=== PATIENT | male | born 1970 | race Caucasian/White ===

== ENCOUNTER 2024-06-01 23:39 | Observation (INO) | payer OTHER ==
[2024-06-02 00:48] LABS: Basophils % (A) 0 %; Eosinophils # (A) 0.1 k/uL (0-0.7); Eosinophils % (A) 1 %; HCT 45.5 % (39.0-53.0); HGB 14.4 gm/dL (13.0-17.5); Lymphocytes % (A) 19 %; MCH 30.4 pg (25.0-35.0); MCHC 31.7 g/dL (31.0-37.0); MCV 95.9 fL (80.0-100.0); Mean Platelet Volume 7.1; Monocytes # (A) 0.3 k/uL (0-1.0); Monocytes % (A) 5 %; Neutrophils # (A) 3.8 k/uL (1.3-7.7); Neutrophils % (A) 73 %; Platelet Count 184 k/uL (150-450); RBC 4.74 m/uL (4.30-5.90); RDW 13.6 % (11.5-15.5); WBC 5.2 k/uL (3.8-10.6)
[2024-06-02 00:52] LABS: ALT 23 U/L (4-49); African American GFR (CKD) >90 (>60 ml/min/1.73 sqM); Albumin 4.3 g/dL (3.5-5.0); Anion Gap 13 mmol/L; Blood Urea Nitrogen 11 mg/dL (9-20); Calcium 9.3 mg/dL (8.4-10.2); Carbon Dioxide 20 mmol/L (22-30); Chloride 104 mmol/L (98-107); Glucose 107 mg/dL (74-99); Non-African American GFR(CKD) >90 (>60 ml/min/1.73 sqM); Sodium 137 mmol/L (137-145); Total Bilirubin 0.7 mg/dL (0.2-1.3)
--- NOTE | 2024-06-02 00:53 | ED ---
General Adult HPI - General Chief complaint: Alcohol Stated complaint: ETOH, Altered Mental Time Seen by Provider: 06/01/24 23:46 Source: EMS Mode of arrival: EMS Limitations: altered mental status - History of Present Illness Initial comments: This patient is a 53-year-old man brought by ambulance to have evaluation for altered mental status. The patient reportedly was found sleeping in his [id number] vehicle roadside. The police had responded and they called ambulance brought the patient to have evaluation. It is reported that patient's sister was contacted by phone and states he hit does have diabetes and hypertension. The patient not able to provide any history -: unknown Consistency: constant Improves with: none Worsens with: none - Related Data Home Medications Medication Instructions Recorded Confirmed Amitriptyline HCl [Elavil] 50 mg PO HS 06/02/24 06/02/24 Ammonium Lactate Lotion 1 applic TOPICAL HS 06/02/24 06/02/24 [Lac-Hydrin 12% Lotion] Atorvastatin [Lipitor] 20 mg PO DAILY 06/02/24 06/02/24 Cholecalciferol [Vitamin D3 (125 125 mcg PO DAILY 06/02/24 06/02/24 Mcg = 5000 Iu)] Dapagliflozin Propanediol [Farxiga] 10 mg PO DAILY 06/02/24 06/02/24 Dulaglutide [Trulicity] 1.5 mg SQ Q7D 06/02/24 06/02/24 Fexofenadine HCl [Jacqui Allergy] 180 mg PO DAILY 06/02/24 06/02/24 Ibuprofen [Motrin] 800 mg PO BID-W/MEALS PRN 06/02/24 06/02/24 Latanoprost [Latanoprost 0.005%] 1 drop LEFT EYE HS 06/02/24 06/02/24 Pioglitazone [Actos] 15 mg PO DAILY 06/02/24 06/02/24 Allergies Allergy/AdvReac Type Severity Reaction Status Date / Time No Known Allergies Allergy Verified 06/02/24 00:26 Review of Systems ROS Statement: Those systems with pertinent positive or pertinent negative responses have been documented in the HPI. ROS Other: All systems not noted in ROS Statement are negative. Limitations: ROS unobtainable due to patients medical condition Past Medical History Past Medical History: Diabetes Mellitus, Hypertension History of Any Multi-Drug Resistant Organisms: Unobtainable Past Surgical History: Unable to Obtain Past Psychological History: Unable to Obtain Smoking Status: Unknown if ever smoked Past Alcohol Use History: Unable to Obtain Past Drug Use History: Unable to Obtain General Exam Limitations: altered mental status General appearance: appears intoxicated, obtunded Head exam: Present: atraumatic, normocephalic Eye exam: Present: normal appearance, PERRL. Absent: scleral icterus, conjunctival injection Neck exam: Present: normal inspection. Absent: tenderness, meningismus Respiratory exam: Present: normal lung sounds bilaterally. Absent: respiratory distress, wheezes, rales, rhonchi, stridor, chest wall tenderness, accessory muscle use Cardiovascular Exam: Present: regular rate, normal rhythm, normal heart sounds. Absent: systolic murmur, diastolic murmur, rubs, gallop GI/Abdominal exam: Present: soft. Absent: distended, tenderness, guarding, rebound, rigid, mass, pulsatile mass Extremities exam: Present: normal inspection, normal capillary refill. Absent: pedal edema, calf tenderness Back exam: Present: normal inspection. Absent: CVA tenderness (R), CVA tenderness (L), vertebral tenderness Neurological exam: Present: altered, reflexes normal Skin exam: Present: warm, dry, intact, normal color. Absent: rash Course Vital Signs 06/01/24 06/02/24 06/02/24 23:43 00:43 01:05 Temperature 97.3 F L Pulse Rate 62 80 88 Respiratory 18 19 18 Rate Blood Pressure 133/83 113/96 135/66 O2 Sat by Pulse 98 96 97 Oximetry 06/02/24 06/02/24 06/02/24 02:34 04:08 05:01 Temperature Pulse Rate 95 67 63 Respiratory 18 16 18 Rate Blood Pressure 131/68 127/71 141/84 O2 Sat by Pulse 97 95 98 Oximetry 06/02/24 06/02/24 06/02/24 07:00 08:00 10:00 Temperature Pulse Rate 66 79 88 Respiratory 16 18 18 Rate Blood Pressure 143/82 151/84 155/82 O2 Sat by Pulse 97 97 97 Oximetry 06/02/24 06/02/24 06/02/24 13:27 14:00 16:13 Temperature Pulse Rate 99 99 87 Respiratory 18 16 18 Rate Blood Pressure 148/78 142/73 144/81 O2 Sat by Pulse 96 96 Oximetry 09/06/02/24 06/02/24 18:13 19:38 21:10 Temperature Pulse Rate 89 84 76 Respiratory 20 16 18 Rate Blood Pressure 127/73 164/94 125/75 O2 Sat by Pulse 94 L 94 L 94 L Oximetry 06/03/24 06/03/24 06/03/24 00:00 05:00 07:53 Temperature Pulse Rate 66 75 78 Respiratory 18 18 18 Rate Blood Pressure 125/57 139/95 154/79 O2 Sat by Pulse 97 96 98 Oximetry Medical Decision Making - Medical Decision Making The patient had CT scan of the brain that I interpreted as negative for acute bony injury. The scan is negative for acute intracranial hemorrhage or mass effect. Was pt. sent in by a medical professional or institution (, PA, NET WEB APPLICATION DEVELOPER, urgent care, hospital, or half-way...) When possible be specific @ -[No] Did you speak to anyone other than the patient for history (EMS, parent, family, police, friend...)? What history was obtained from this source @ -EMS provided history Did you review nursing and triage notes (agree or disagree)? Why? @ -[I reviewed and agree with nursing and triage notes] Were old charts reviewed (outside hosp., previous admission, EMS record, old EKG, old radiological studies, urgent care reports/EKG's, half-way records)? Report findings @ -[No old charts were reviewed] Differential Diagnosis (chest pain, altered mental status, abdominal pain women, abdominal pain men, vaginal bleeding, weakness, fever, dyspnea, syncope, headac he, dizziness, GI bleed, back pain, seizure, CVA, palpatations, mental health, musculoskeletal)? @ -[Differential Altered Mental Status: Hypoglycemia, DKA, hypercapnia, ETOH, overdose, CO poisoning, trauma, myxedema coma, HTN encephalopathy, infection, encephalitis, psychosis, intercranial hemorrhage, hepatic encephalopathy, meningitis, CVA, this is not meant to be an all-inclusive list EKG interpreted by me (3pts min.). @ -[As above] X-rays interpreted by me (1pt min.). @ -[None done] CT interpreted by me (1pt min.). @ -[I interpreted as above U/S interpreted by me (1pt. min.). @ -[None done] What testing was considered but not performed or refused? (CT, X-rays, U/S, labs)? Why? @ -[None] What meds were considered but not given or refused? Why? @ -[None] Did you discuss the management of the patient with other professionals (professionals i.e. , PA, NET WEB APPLICATION DEVELOPER, lab, RT, psych nurse, social work coordinator, under water assistant, teacher, hazard mitigation officer, case consultant)? Give summary @ -[Case discussed with admitting physician and treatment recommendations incorporated Was smoking cessation discussed for >3mins.? @ -[No] Was critical care preformed (if so, how long)? @ -[No] Were there social determinants of health that impacted care today? How? (Homelessness, low income, unemployed, alcoholism, drug addiction, transportation, low edu. Level, literacy, decrease access to med. care, alf, rehab)? @ -[No] Was there de-escalation of care discussed even if they declined (Discuss DNR or withdrawal of care, Hospice)? DNR status @ -[No] What co-morbidities impacted this encounter? (DM, HTN, Smoking, COPD, CAD, Cancer, CVA, ARF, Chemo, Hep., AIDS, mental health diagnosis, sleep apnea, morbid obesity)? @ -[None] Was patient admitted / discharged? Hospital course, mention meds given and route, prescriptions, significant lab abnormalities, going to OR and other pertinent info. @ -[Patient is a 53-year-old man who was brought by EMS to have evaluation after he was found unresponsive in a vehicle on the roadside. The patient had workup here that revealed some alcohol present. After the patient was finished with the initial workup was reevaluated and the patient is arousable but not able to give appropriate history. In light of this will be admitted to have further evaluation by neurology and/or psychology. There are no focal deficits on reevaluation Undiagnosed new problem with uncertain prognosis? @ -[No] Drug Therapy requiring intensive monitoring for toxicity (Heparin, Nitro, Insulin, Cardizem)? @ -[No] Were any procedures done? @ -[No] Diagnosis/symptom? @ -Altered mental status Alcohol intoxication Acute, or Chronic, or Acute on Chronic? @ -Acute Uncomplicated (without systemic symptoms) or Complicated (systemic symptoms)? @ -[Uncomplicated Side effects of treatment? @ -[No] Exacerbation, Progression, or Severe Exacerbation? @ -[No] Poses a threat to life or bodily function? How? (Chest pain, [place], [place], pneumonia, PE, COPD, DKA, ARF, appy, cholecystitis, CVA, Diverticulitis, Homicidal, Suicidal, threat to staff... and all critical care pts) @ -[Requires further evaluation - Lab Data Result diagrams: 06/04/24 03:00 06/04/24 03:00 Lab Results 06/01/24 06/01/24 06/02/24 Range/Units 23:58 23:58 01:50 WBC 5.2 (3.8-10.6) k/uL RBC 4.74 (4.30-5.90) m/uL Hgb 14.4 (13.0-17.5) gm/dL Hct 45.5 (39.0-53.0) % MCV 95.9 (80.0-100.0) fL MCH 30.4 (25.0-35.0) pg MCHC 31.7 (31.0-37.0) g/dL RDW 13.6 (11.5-15.5) % Plt Count 184 (150-450) k/uL MPV 7.1 Neutrophils % 73 % Lymphocytes % 19 % Monocytes % 5 % Eosinophils % 1 % Basophils % 0 % Neutrophils # 3.8 (1.3-7.7) k/uL Lymphocytes # 1.0 (1.0-4.8) k/uL Monocytes # 0.3 (0-1.0) k/uL Eosinophils # 0.1 (0-0.7) k/uL Basophils # 0.0 (0-0.2) k/uL Sodium 137 (137-145) mmol/L Potassium 4.0 (3.5-5.1) mmol/L Chloride 104 (98-107) mmol/L Carbon Dioxide 20 L (22-30) mmol/L Anion Gap 13 mmol/L BUN 11 (9-20) mg/dL Creatinine 0.85 (0.66-1.25) mg/dL Est GFR (CKD-EPI)AfAm >90 (>60 ml/min/1.73 sqM) Est GFR (CKD-EPI)NonAf >90 (>60 ml/min/1.73 sqM) Glucose 107 H (74-99) mg/dL Calcium 9.3 (8.4-10.2) mg/dL Total Bilirubin 0.7 (0.2-1.3) mg/dL AST 31 (17-59) U/L ALT 23 (4-49) U/L Alkaline Phosphatase 82 (38-126) U/L Total Protein 7.0 (6.3-8.2) g/dL Albumin 4.3 (3.5-5.0) g/dL Urine Color Colorless Urine Appearance Clear (Clear) Urine pH 5.5 (5.0-8.0) Ur Specific [place] 1.008 (1.001-1.035) Urine Protein Negative (Negative) Urine Glucose (UA) 4+ H (Negative) Urine Ketones Negative (Negative) Urine Nitrite Negative (Negative) Urine Bilirubin Negative (Negative) Urine Urobilinogen 0.2 (<2.0) mg/dL Ur Leukocyte Esterase Negative (Negative) Urine RBC 2 (0-5) /hpf Urine WBC 1 (0-5) /hpf Ur Squamous Epith Cells 2 (0-4) /hpf Urine Mucus Rare H (None) /hpf Urine Opiates Screen Not Detected (NotDetected) Ur Oxycodone Screen Not Detected (NotDetected) Urine Methadone Screen Not Detected (NotDetected) Ur Barbiturates Screen Not Detected (NotDetected) U Tricyclic Antidepress Detected H (NotDetected) Ur Phencyclidine Scrn Not Detected (NotDetected) Ur Amphetamines Screen Not Detected (NotDetected) U Methamphetamines Scrn Not Detected (NotDetected) U Benzodiazepines Scrn Not Detected (NotDetected) Urine Cocaine Screen Not Detected (NotDetected) U Marijuana (THC) Screen Not Detected (NotDetected) Serum Alcohol 93 mg/dL Disposition Clinical Impression: Altered mental status, Alcoholic intoxication Disposition: ADMITTED IP TO THIS HOSP Condition: Stable Is patient prescribed a controlled substance at d/c from ED?: No
[2024-06-02 01:26] LABS: AST 31 U/L (17-59); Alkaline Phosphatase 82 U/L (38-126)
[2024-06-02 01:28] LABS: Alcohol 93 mg/dL
[2024-06-02] MEDS: ZIPRASIDONE 20 MG VIAL IM STA (01:39)
[2024-06-02 02:17] LABS: Mucus,Urine Rare /hpf; RBC,Urine 2 /hpf (0-5); Squamous Epithelial Cell,Urine 2 /hpf (0-4); WBC,Urine 1 /hpf (0-5)
[2024-06-02 02:33] LABS: Amphetamine Screen,Urine Not Detected (NotDetected); Barbiturate Screen,Urine Not Detected (NotDetected); Benzodiazepines Screen,Urine Not Detected (NotDetected); Cocaine Screen,Urine Not Detected (NotDetected); Methadone Screen, Urine Not Detected (NotDetected); Opiate Screen,Urine Not Detected (NotDetected); Oxycodone Screen, Urine Not Detected (NotDetected); Phencyclidine Screen,Urine Not Detected (NotDetected); Tricyclic Antidepressant,Urine Detected (NotDetected)
[2024-06-02 02:34] LABS: Urn Cannabinoid Scrn Not Detected (NotDetected)
[2024-06-02 02:35] LABS: Appearance,Urine Clear (Clear); Bilirubin,Urine Negative (Negative); Color,Urine Colorless; Glucose,Urine (UA) 4+ (Negative); Ketones,Urine Negative (Negative); Leukocyte Esterase,Urine Negative (Negative); Nitrite,Urine Negative (Negative); PH, Urine 5.5 (5.0-8.0); Protein,Urine Negative (Negative); Specific Gravity,Urine 1.008 (1.001-1.035); Urobilinogen,Urine 0.2 mg/dL (<2.0)
--- NOTE | 2024-06-02 02:53 | CT ---
EXAM: CT Head Without Intravenous Contrast CLINICAL HISTORY: ITS.REASON CT Reason: altered mental status TECHNIQUE: Axial computed tomography images of the head/brain without intravenous contrast. CTDI is 49.2 mGy and DLP is 1243.4 mGy-cm. This CT exam was performed using one or more of the following dose reduction techniques: automated exposure control, adjustment of the mA and/or kV according to patient size, and/or use of iterative reconstruction technique. COMPARISON: No relevant prior studies available. FINDINGS: Brain: No hemorrhage or mass effect. Ventricles: No hydrocephalus. Bones/joints: Unremarkable. Soft tissues: Unremarkable. Sinuses: No air fluid level. Mastoid air cells: Clear. IMPRESSION: No acute hemorrhage, hydrocephalus, or mass effect.
[2024-06-02] MEDS ORDERED: NALOXONE 0.4 MG/ML 1 ML VIAL IV PRN (07:28)
[2024-06-02] MEDS ORDERED: LORazepam 2 MG/ML INJ IV PRN ×2 (07:31)
[2024-06-02] MEDS: SODIUM CHLORIDE 0.9% 1,000 ML IV SCH (08:06)
[2024-06-02 08:09] LABS: Glucose,Whole Blood 97 mg/dL (70-110)
[2024-06-02] MEDS ORDERED: DEXTROSE 50% SYRINGE 50 ML IVP PRN ×2 (09:50)
--- NOTE | 2024-06-02 09:58 | P.HPIM ---
History of Present Illness H&P Date: 06/02/24 Saman Uriostegui is a 53-year-old male patient who was brought to the ER by ambulance for altered mental status. According to records patient was found sleeping in his vehicle roadside the police had responded and called an ambulance to have him evaluated at this time patient is sleeping in bed unable to answer questions. According to nursing staff patient remained altered and confused last night requiring Geodon. Per nursing staff sister was contacted by phone reports only history of diabetes and hypertension. Head CT was completed showing no acute hemorrhage hydrocephalus or mass effect. Patient serum alcohol level of 93. Drug screen positive for tricyclic antidepressant. Other lab work unremarkable. Vital signs temp 97.3, heart rate 62, respiratory rate 18, blood pressure 133/83 with a pulse ox of 98% on 2 L at this time patient will be admitted patient started on alcohol withdrawal protocol per ER. Neurology and psychiatry services have been consulted. Review of Systems Please refer to HPI otherwise unremarkable Past Medical History Past Medical History: Diabetes Mellitus, Hypertension History of Any Multi-Drug Resistant Organisms: Unobtainable Past Surgical History: Unable to Obtain Past Psychological History: Unable to Obtain Smoking Status: Unknown if ever smoked Past Alcohol Use History: Unable to Obtain Past Drug Use History: Unable to Obtain Medications and Allergies Home Medications Medication Instructions Recorded Confirmed Type Amitriptyline HCl [Elavil] 50 mg PO HS 06/02/24 06/02/24 History Ammonium Lactate Lotion 1 applic TOPICAL HS 06/02/24 06/02/24 History [Lac-Hydrin 12% Lotion] Atorvastatin [Lipitor] 20 mg PO DAILY 06/02/24 06/02/24 History Cholecalciferol [Vitamin D3 (125 125 mcg PO DAILY 06/02/24 06/02/24 History Mcg = 5000 Iu)] Dapagliflozin Propanediol [Farxiga] 10 mg PO DAILY 06/02/24 06/02/24 History Dulaglutide [Trulicity] 1.5 mg SQ Q7D 06/02/24 06/02/24 History Fexofenadine HCl [Jacqui Allergy] 180 mg PO DAILY 06/02/24 06/02/24 History Ibuprofen [Motrin] 800 mg PO BID-W/MEALS PRN 06/02/24 06/02/24 History Latanoprost [Latanoprost 0.005%] 1 drop LEFT EYE HS 06/02/24 06/02/24 History Pioglitazone [Actos] 15 mg PO DAILY 06/02/24 06/02/24 History Allergies Allergy/AdvReac Type Severity Reaction Status Date / Time No Known Allergies Allergy Verified 06/02/24 00:26 Physical Exam Vitals: Vital Signs Temp Pulse Resp BP Pulse Ox 06/02/24 08:00 79 18 151/84 97 06/02/24 07:00 66 16 143/82 97 06/02/24 05:01 63 18 141/84 98 06/02/24 04:08 67 16 127/71 95 06/02/24 02:34 95 18 131/68 97 06/02/24 01:05 88 18 135/66 97 06/02/24 00:43 80 19 113/96 96 06/01/24 23:43 97.3 F L 62 18 133/83 98 Intake and Output 06/01/24 06/02/24 06/02/24 22:59 06:59 14:59 Other: Weight 111.13 kg Head normocephalic Neck supple Lungs clear to auscultation bilaterally no wheezing or crackles Heart regular rate and rhythm S1-S2, no rub or gallop Abdomen is soft nontender nondistended positive bowel sounds no hepatosplenomegaly Extremities no edema Neuro patient confused Results CBC & Chem 7: 06/01/24 23:58 06/01/24 23:58 Labs: Abnormal Lab Results - Last 24 Hours (Table) 06/01/24 06/02/24 Range/Units 23:58 01:50 Carbon Dioxide 20 L (22-30) mmol/L Glucose 107 H (74-99) mg/dL Urine Glucose (UA) 4+ H (Negative) Urine Mucus Rare H (None) /hpf U Tricyclic Antidepress Detected H (NotDetected) Assessment and Plan Assessment: 1. Altered mental status changes 2. EtOH intoxication alcohol level 93 3. History of diabetes mellitus Home medications currently on hold sliding scale added 4. History of essential hypertension DVT prophylaxis heparin. GI prophylax Protonix Neurology and psychiatry services consulted Repeat labs ordered Patient maintained on alcohol withdrawal protocol Time with Patient: Greater than 30 (Greater than 60% of the total time spent in counseling and coordination of care)
[2024-06-02] MEDS: LORazepam 2 MG/ML INJ IV PRN (10:44)
[2024-06-02 13:22] LABS: Glucose,Whole Blood 94 mg/dL (70-110)
[2024-06-02] MEDS: INSULIN ASPART (NovoLOG) 100 UNIT/ML VIAL SQ SCH (13:23)
--- NOTE | 2024-06-02 14:02 | P.CN ---
Psychiatric Consult - . Consult date: 06/02/24 Consult:: 06/02/24 13:27 IDENTIFYING DATA: This patient is a 53-year-old male REASON FOR REFERRAL: Psychiatry was consulted for altered mental status HISTORY OF PRESENT ILLNESS: The patient presented to the hospital on 06/02 brought in by EMS. Patient was brought in the hospital for altered mental status, he apparently was found sleeping on his [id number] at the side of the road. Patient allegedly has a history of diabetes and hypertension. He is found to have a blood alcohol level of 93 on arrival, urine drug screen positive for TCAs. CAT scan of the brain did not show any acute changes. Patient received Ativan earlier by nurse. Coin Machine Servicer Repairer attempted to see patient at the bedside, patient was sleeping difficult to awaken. He awoke briefly looked at business writer and closes eyes again. He was selectively mute, only answering some questions, perseverating at times. He was able to correctly state his name and also his age, did not know his date of , he only knew that he was in a "hospital" however did not know where. When asked about the date he states "24th" and did not elaborate further. He did not respond when asked about his mood, anxiety, and his situation prior to arrival or any further questions. PAST PSYCHIATRIC HISTORY: Unable to obtain further psychiatric history due to patient's mental status PAST MEDICAL HISTORY: Past Medical History: Diabetes Mellitus, Hypertension History of Any Multi-Drug Resistant Organisms: Unobtainable Past Surgical History: Unable to Obtain Past Psychological History: Unable to Obtain Smoking Status: Unknown if ever smoked Past Alcohol Use History: Unable to Obtain Past Drug Use History: Unable to Obtain ALLERGIES: as per EMR. CHEMICAL DEPENDENCY HISTORY: Unable to gather. Patient's blood alcohol was 93 on arrival. FAMILY PSYCHIATRIC/SUBSTANCE USE HISTORY: Unable to gather SOCIAL HISTORY: Unable to gather MENTAL STATUS EXAM: General Appearance: Patient appears to be laying in bed, fairly somnolent, stated age is none cooperative. Patient appears to have poor hygiene and groom ing wearing hospital gown with poor eye contact. Behavior: Patient is calmly lying in bed without any agitated behavior. Fairly somnolent Speech: Patient's speech is hesitant, selectively mute Mood/Affect: Unable to gather Suicidality/Homicidality: Able to gather Perceptions: Unable to gather Though content/process: Increased, poverty of content. Memory and concentration: AOX1-2, grossly impaired concentration, unable to cooperate with the exam. Cannot spell "WORLD" backwards Judgment and insight: Poor IMPRESSIONS: Delirium, etiology unknown Alcohol use disorder r/o suicide attempt?? PLAN: -At this time unable to decide if patient would benefit from inpatient psychiatric treatment. Patient is unable to give further information about his situation and what had occurred and also his current symptoms. Continue with medical management for treatment of underlying delirium/encephalopathy and alcohol withdrawal and once patient becomes more able to communicate will reevaluate if patient meets criteria. -Would recommend the following medication changes/additions: Can continue with CIWA protocol with as needed Ativan for alcohol withdrawal. Zyprexa as needed for agitation/psychosis -CIWA protocol with PRN Ativan for alcohol withdrawal. Continue to monitor vital signs. -please obtain further collateral history from relatives or friends if possible about the events that occurred, symptoms and/or any concerns. -Communicated plan to patient's nurse -Will continue to follow along as needed -Please contact with any questions. 06/02/24 13:54 06/02/24 14:02
[2024-06-02] MEDS ORDERED: OLANZapine 5 MG TAB PO PRN (14:18)
[2024-06-02] MEDS ORDERED: OLANZapine 10 MG VIAL IM PRN (14:18)
[2024-06-02 17:07] LABS: Glucose,Whole Blood 105 mg/dL (70-110)
[2024-06-02 20:12] LABS: Glucose,Whole Blood 149 mg/dL (70-110)
[2024-06-02] MEDS: HEPARIN SODIUM,PORCINE 5,000 UNIT/ML 1 ML VIAL SQ SCH (20:15)
[2024-06-02] MEDS: LATANOPROST 0.005% OPHTH DROPS 2.5 ML BTL LEFT EYE SCH (21:23)
[2024-06-03 08:46] LABS: Basophils # (A) 0.04 X 10*3/uL (0.00-0.10); Basophils % (A) 0.3 %; Eosinophils # (A) 0.06 X 10*3/uL (0.04-0.35); Eosinophils % (A) 0.4 %; HCT 49.8 % (39.6-50.0); HGB 16.2 g/dL (13.0-17.0); Lymphocytes # (A) 2.55 X 10*3/uL (0.90-5.00); Lymphocytes % (A) 17.7 %; MCH 30.6 pg (27.0-32.0); MCHC 32.5 g/dL (32.0-37.0); Mean Platelet Volume 9.6 FL (9.5-12.2); Monocytes # (A) 0.97 X 10*3/uL (0.20-1.00); Monocytes % (A) 6.7 %; NRBC Per 100 WBC 0 X 10*3/uL (0.00-0.01); Neutrophils # (A) 10.73 X 10*3/uL (1.80-7.70); Neutrophils % (A) 74.6 %; Platelet Count 197 X 10*3/uL (140-440); RDW 14.2 % (11.5-14.5)
[2024-06-03 09:03] LABS: BUN/Creat Ratio 11.58 Ratio (12.00-20.00); Blood Urea Nitrogen 13.9 mg/dL (9.0-27.0); Chloride 99 mmol/L (96-109); Glucose 113 mg/dL (70-110); Potassium 4.5 mmol/L (3.5-5.5); Sodium 139 mmol/L (135-145)
[2024-06-03 09:04] LABS: ALT 21 U/L (10-49); AST 25 U/L (14-35); Albumin 4.3 g/dL (3.8-4.9); Albumin/Globulin Ratio 1.59 Ratio (1.60-3.17); Alkaline Phosphatase 105 U/L (41-126); Calcium 9.3 mg/dL (8.7-10.3); Globulin 2.7 g/dL (1.6-3.3); Total Bilirubin 0.8 mg/dL (0.3-1.2)
--- NOTE | 2024-06-03 09:49 | P.CNNES ---
History of Present Illness Consult date: 06/02/24 Requesting physician: Lauri Reno Reason for Consult: AMS History of Present Illness: Patient is a 53-year-old male came to the hospital by ambulance yesterday at 11:39 PM for altered mental status. Patient not able to provide any history. EMS flowsheet not available in the chart. As per electronic medical records, patient was found sleeping in his vehicle along the roadside. The police had responded and called the ambulance to have him evaluated. Patient has history of diabetes and hypertension. Patient at present denies headache. She admits to having diabetes since 2019 but denies hypertension. 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 He admits to drinking alcohol but for every question he states "depends". He denies any tobacco or marijuana use. He admits to having 1 son. Patient denies any history of seizures. No history of strokes. Please refer to examination below for details. Vital signs on arrival blood pressure 133/83 pulse rate 62 temperature 97.3. Blood test shows normal CBC, CMP, UA is negative, urine drug screen positive for tricyclic. Blood alcohol level 93. CT head showed no acute hemorrhage, hydrocephalus or mass effect. I personally reviewed CT head and agree with the findings. Patient takes Actos, Farxiga, Lipitor 20 mg, Elavil 50 mg at bedtime, Jacqui, Trulicity, Review of Systems Cannot assess because of altered mental status. Limited review of systems as per HPI. Past Medical History Past Medical History: Diabetes Mellitus, Hypertension History of Any Multi-Drug Resistant Organisms: Unobtainable Past Surgical History: Unable to Obtain Past Psychological History: Unable to Obtain Smoking Status: Unknown if ever smoked Past Alcohol Use History: Unable to Obtain Past Drug Use History: Unable to Obtain Medications and Allergies Home Medications Medication Instructions Recorded Confirmed Type Amitriptyline HCl [Elavil] 50 mg PO HS 06/02/24 06/02/24 History Ammonium Lactate Lotion 1 applic TOPICAL HS 06/02/24 06/02/24 History [Lac-Hydrin 12% Lotion] Atorvastatin [Lipitor] 20 mg PO DAILY 06/02/24 06/02/24 History Cholecalciferol [Vitamin D3 (125 125 mcg PO DAILY 06/02/24 06/02/24 History Mcg = 5000 Iu)] Dapagliflozin Propanediol [Farxiga] 10 mg PO DAILY 06/02/24 06/02/24 History Dulaglutide [Trulicity] 1.5 mg SQ Q7D 06/02/24 06/02/24 History Fexofenadine HCl [Jacqui Allergy] 180 mg PO DAILY 06/02/24 06/02/24 History Ibuprofen [Motrin] 800 mg PO BID-W/MEALS PRN 06/02/24 06/02/24 History Latanoprost [Latanoprost 0.005%] 1 drop LEFT EYE HS 06/02/24 06/02/24 History Pioglitazone [Actos] 15 mg PO DAILY 06/02/24 06/02/24 History Allergies Allergy/AdvReac Type Severity Reaction Status Date / Time No Known Allergies Allergy Verified 06/02/24 00:26 Physical Examination - Vital Signs Vital Signs: Vital Signs Temp Pulse Resp BP Pulse Ox 06/02/24 14:00 99 16 142/73 06/02/24 13:27 99 18 148/78 96 06/02/24 10:00 88 18 155/82 97 06/02/24 08:00 79 18 151/84 97 06/02/24 07:00 66 16 143/82 97 06/02/24 05:01 63 18 141/84 98 06/02/24 04:08 67 16 127/71 95 06/02/24 02:34 95 18 131/68 97 06/02/24 01:05 88 18 135/66 97 06/02/24 00:43 80 19 113/96 96 06/01/24 23:43 97.3 F L 62 18 133/83 98 Intake and Output 06/01/24 06/02/24 06/02/24 22:59 06:59 14:59 Other: Weight 111.13 kg Patient is a middle aged male, who is encephalopathic, appears somewhat delirious. Patient is somewhat disheveled. Patient is encephalopathic. He is having some myoclonic twitching of his facial region in the body. Patient states that he lives in [facility] in [place]. He knows that he needs a hospital but does not know the name. Patient states the current president is "an idiot", but then was able to tell the name "Dante". Speech is limited, as he is mostly quiet, but limited speech was clear with no obvious aphasia or dysarthria. No paraphasic errors. Attention, concentration is severely limited and fund of knowledge is difficult to assess because of mental status. Patient's neck is supple. On cranial nerve examination, pupils are equal, round and reacting to light, visual duque are full on confrontation, with no neglect on double simultaneous stimulation. Extraocular muscles are intact with no nystagmus. Face is symmetric, tongue protrudes to the midline. Palatal elevation and sensation normal, hearing and shoulder shrug normal, facial sensation normal. There is no evidence of tongue bite bucky. On muscle strength testing, there is no pronator drift and the strength is normal in arms and legs distally and proximally. Deep tendon reflexes are symmetric 1 at the biceps, trace brachioradialis, 1+ at the knees 1 ankles and plantars are flat bilaterally. Sensory to touch is equal with no neglect on double simultaneous stimulation. Cerebellar function showed no ataxia for dkwgky-[id number] testing although patient has myoclonic jerks noted. No dysdiadochokinesia. No ataxia for [id number] testing on either side. Tone and bulk of muscles normal. Patient has very significant myoclonic jerks of outstretched hands. Gait deferred.. On general examination, there is no carotid bruit or murmur, S1-S2 audible. Chest is clear on consultation. Abdomen is soft nontender. No organomegaly, bowel sounds present. Peripheral pulses are present. No peripheral edema. Results - Laboratory Findings CBC and BMP: 06/03/24 04:39 06/03/24 04:39 Abnormal Lab Findings: Abnormal Labs 06/01/24 06/02/24 23:58 01:50 Carbon Dioxide 20 L Glucose 107 H Urine Glucose (UA) 4+ H Urine Mucus Rare H U Tricyclic Antidepress Detected H Assessment and Plan Assessment: * Altered mental status, probably due to metabolic encephalopathy. Patient has alcohol intoxication. Blood alcohol level 93. * Rule out postictal state. Patient denies any history of seizures. * Alcoholism * Myoclonic jerks, likely due to above. * Diabetes * Hypertension Plan: * EEG evaluate for encephalopathy, rule out any epileptiform activity. * B12, folate, ammonia, RPR. TSH is normal 2.06. * Psychiatry also on board. * Fall risk and seizure precautions. * Continue [facility] protocol * Neurology will follow. Thank you for the consult.
[2024-06-03] MEDS: ATORVASTATIN 20 MG TAB PO SCH (11:43)
[2024-06-03] MEDS: THIAMINE 100 MG TAB PO SCH (11:43)
[2024-06-03] MEDS: DAPAGLIFLOZIN PROPANEDIOL 10 MG TABLET PO SCH (11:43)
[2024-06-03] MEDS: CHOLECALCIFEROL 125 MCG (5000 IU) TABLET PO SCH (11:43)
[2024-06-03] MEDS: PANTOPRAZOLE 40 MG TABLET PO SCH (11:43)
[2024-06-03] MEDS: LORATADINE 10 MG TAB PO SCH (11:56)
[2024-06-03 12:09] LABS: Glucose,Whole Blood 145 mg/dL (70-110)
[2024-06-03 14:36] VITALS: BMI 31.4
[2024-06-03 17:02] LABS: Glucose,Whole Blood 97 mg/dL (70-110)
[2024-06-03] MEDS: CYANOCOBALAMIN 500 MCG TAB PO SCH (17:20)
--- NOTE | 2024-06-03 18:14 | P.PN ---
Subjective Progress Note Date: 06/03/24 Saman Uriostegui is a 53-year-old male patient who was brought to the ER by ambulance for altered mental status. According to records patient was found sleeping in his vehicle roadside the police had responded and called an ambulance to have him evaluated at this time patient is sleeping in bed unable to answer questions. According to nursing staff patient remained altered and confused last night requiring Geodon. Per nursing staff sister was contacted by phone reports only history of diabetes and hypertension. Head CT was completed showing no acute hemorrhage hydrocephalus or mass effect. Patient serum alcohol level of 93. Drug screen positive for tricyclic antidepressant. Other lab work unremarkable. Vital signs temp 97.3, heart rate 62, respiratory rate 18, blood pressure 133/83 with a pulse ox of 98% on 2 L at this time patient will be admitted patient started on alcohol withdrawal protocol per ER. Neurology and psychiatry services have been consulted. On 06/03/2024 patient was seen and examined on the medical floor he is alert and oriented x 3 in no apparent distress, patient is more calm and oriented today there is no fever or chills no headache or dizziness no chest pain no shortness of breath no cough no nausea or vomiting no abdominal pain no diarrhea and no urinary symptoms, patient had EEG today, results are still pending awaiting results and further recommendation from neurology and psychiatry possible discharge to home tomorrow Objective - Vital Signs Vital signs: Vital Signs Temp 97.3 F L 06/01/24 23:43 Pulse 78 06/03/24 07:53 Resp 18 06/03/24 07:53 BP 154/79 06/03/24 07:53 Pulse Ox 98 06/03/24 07:53 FiO2 Intake & Output 06/02/24 06/03/24 06/03/24 18:59 06:59 18:59 Weight 111.13 kg - Exam Head normocephalic Neck supple Lungs clear to auscultation bilaterally no wheezing or crackles Heart regular rate and rhythm S1-S2, no rub or gallop Abdomen is soft nontender nondistended positive bowel sounds no hepato splenomegaly Extremities no edema Neuro patient confused - Labs CBC & Chem 7: 06/03/24 04:39 06/03/24 04:39 Labs: Abnormal Lab Results - Last 24 Hours (Table) 06/02/24 06/03/24 06/03/24 Range/Units 20:11 04:39 04:39 WBC 14.40 H (4.50-10.00) X 10*3/uL Immature Gran # 0.05 H (0.00-0.04) X 10*3/uL Neutrophils # 10.73 H (1.80-7.70) X 10*3/uL Anion Gap (4.00-12.00) mmol/L BUN/Creatinine Ratio (12.00-20.00) Ratio Glucose (70-110) mg/dL POC Glucose (mg/dL) 149 H (70-110) mg/dL Hemoglobin A1c 6.2 H (<=6.0) % Albumin/Globulin Ratio (1.60-3.17) Ratio 06/03/24 06/03/24 Range/Units 04:39 12:07 WBC (4.50-10.00) X 10*3/uL Immature Gran # (0.00-0.04) X 10*3/uL Neutrophils # (1.80-7.70) X 10*3/uL Anion Gap 13.00 H (4.00-12.00) mmol/L BUN/Creatinine Ratio 11.58 L (12.00-20.00) Ratio Glucose 113 H (70-110) mg/dL POC Glucose (mg/dL) 145 H (70-110) mg/dL Hemoglobin A1c (<=6.0) % Albumin/Globulin Ratio 1.59 L (1.60-3.17) Ratio Assessment and Plan Assessment: 1. Altered mental status changes 2. EtOH intoxication alcohol level 93 3. History of diabetes mellitus Home medications currently on hold sliding scale added 4. History of essential hypertension DVT prophylaxis heparin. GI prophylax Protonix Neurology and psychiatry services consulted Repeat labs ordered Patient maintained on alcohol withdrawal protocol
[2024-06-03 20:22] LABS: Glucose,Whole Blood 123 mg/dL (70-110)
[2024-06-03 20:51] VITALS: RESP 16
--- NOTE | 2024-06-03 23:22 | EEG ---
ELECTROENCEPHALOGRAM REPORT PREAMBLE: This is a 53-year-old male who was found sleeping in his vehicle on the side of the road. The patient does have history of alcoholism. Also has hypertension and diabetes. EEG FINDINGS: This is a 21-channel digital EEG recorded with video component, utilizing 10/20 international system with referential and bipolar montages. Background was well developed, well regulated moderate voltage activity in 9 to 10 hertz alpha. Background is posterior dominant and reactive to eye opening and closing. Photic driving response was not seen. Drowsiness was seen with appearance of bilaterally symmetric theta frequency rhythm. Stage 2 sleep was attained, with presence of vertex waves and sleep spindles with diffuse slow waves. No focal or generalized epileptiform activity was seen. IMPRESSION: This is a normal EEG during wakefulness, drowsiness, and stage 2 sleep. No focal, lateralized, or epileptiform activity was seen. MMDINAHL / DEVINN: [id number] /
[2024-06-04 07:07] LABS: Glucose,Whole Blood 109 mg/dL (70-110)
[2024-06-04 07:50] VITALS: BP 134/91; PULSE 80; TEMP 97.6
--- NOTE | 2024-06-04 08:43 | P.PN ---
Subjective Progress Note Date: 06/03/24 Patient was seen for a follow-up. Patient is sitting comfortably in the recliner. His mentation is now back to normal. Patient reports that he has been having increasing back spasms. He is supposed to take baclofen 1 tablet in the morning and 1-1/2 tablet at night. Because he was having increased back pain, he probably took an extra dose, total of 4 tablets. He also drank 2-3 beers on top, which probably produced side effects. Patient states that he also has TENS unit for back pain. He drinks about 2 days a week, and usually drinks 2 or 3 beers, once in a while he may drink vodka. Denies any tobacco use or drugs. Patient states that he remembers driving 4 x 4 [id number] motor vehicle. He remembers that around 8:30 PM he went something to eat, and was on his way home but apparently he lost awareness. Patient states that last time he passed out was in August 2022. At that time he remembers he had taken his sister to the hinduism, took his insulin, has not eaten and then he broke out in sweat and he sat in the chair on the phone and then was on the floor. He felt it was perhaps hypoglycemia, although he remembers his blood sugar was 177. He is not very sure. Patient says that he gets dizziness when he gets up too fast, otherwise does not get dizziness or vertigo. Denies any falls. Patient states he has history of diabetes for 7 years. 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 Objective - Vital Signs Vital signs: Vital Signs Temp 98 F 06/03/24 13:59 Pulse 97 06/03/24 13:59 Resp 19 06/03/24 13:59 BP 147/90 06/03/24 13:59 Pulse Ox 98 06/03/24 13:59 FiO2 Intake & Output 06/02/24 06/03/24 06/03/24 18:59 06:59 18:59 Weight 111.13 kg Other: Voiding Method Toilet - Exam Patient is alert awake oriented times pleasant person speech and language functions are normal. Attention and concentration, fund of knowledge adequate. Cranial nerves II through XII are normal. Visual duque are full, with no neglect. Face is symmetric and tongue protrudes the midline. No evidence of tongue bite bucky. He has poor dentition. On muscle strength testing there is no pronator drift and the strength is normal in arms and legs. No myoclonic jerks. No ataxia for [id number] or zbkl-[id number] testing. Sensory touch is equal with no neglect. - Labs CBC & Chem 7: 06/03/24 04:39 06/03/24 04:39 Labs: Abnormal Lab Results - Last 24 Hours (Table) 06/02/24 06/03/24 06/03/24 Range/Units 20:11 04:39 04:39 WBC 14.40 H (4.50-10.00) X 10*3/uL Immature Gran # 0.05 H (0.00-0.04) X 10*3/uL Neutrophils # 10.73 H (1.80-7.70) X 10*3/uL Anion Gap (4.00-12.00) mmol/L BUN/Creatinine Ratio (12.00-20.00) Ratio Glucose (70-110) mg/dL POC Glucose (mg/dL) 149 H (70-110) mg/dL Hemoglobin A1c 6.2 H (<=6.0) % Albumin/Globulin Ratio (1.60-3.17) Ratio 06/03/24 06/03/24 Range/Units 04:39 12:07 WBC (4.50-10.00) X 10*3/uL Immature Gran # (0.00-0.04) X 10*3/uL Neutrophils # (1.80-7.70) X 10*3/uL Anion Gap 13.00 H (4.00-12.00) mmol/L BUN/Creatinine Ratio 11.58 L (12.00-20.00) Ratio Glucose 113 H (70-110) mg/dL POC Glucose (mg/dL) 145 H (70-110) mg/dL Hemoglobin A1c (<=6.0) % Albumin/Globulin Ratio 1.59 L (1.60-3.17) Ratio Assessment and Plan Assessment: * Altered mental status, probably due to metabolic encephalopathy. Patient took some extra tablets of baclofen to help with his back spasms and also drank some alcohol. Patient was intoxicated on arrival with blood alcohol level 93. * Rule out postictal state. Patient denies any history of seizures. * Alcoholism * Myoclonic jerks, likely due to above. Now resolved. * Diabetes * Hypertension Plan: * EEG was normal during wakefulness, drowsiness and stage II sleep. No focal, lateralized or epileptiform activity was seen. * B12 391, folate 15.4, ammonia,, <9, RPR nonreactive. TSH is normal 2.06. Vitamin B12 is slightly on the lower limits, therefore we will start B12 replacement. * Psychiatry also on board. * Continue [facility] protocol * Suggests patient may undergo MRI of the brain as an outpatient. * Carotid Doppler, rule out stenosis. * Recommended abstinence from alcohol use. * May consider cardiac workup, but will defer to IM.
[2024-06-04 08:53] LABS: Basophils # (A) 0.05 X 10*3/uL (0.00-0.10); Basophils % (A) 0.4 %; Eosinophils # (A) 0.13 X 10*3/uL (0.04-0.35); Eosinophils % (A) 1.1 %; HCT 47.5 % (39.6-50.0); HGB 15.6 g/dL (13.0-17.0); Lymphocytes # (A) 2.28 X 10*3/uL (0.90-5.00); Lymphocytes % (A) 19.9 %; MCH 30.8 pg (27.0-32.0); MCHC 32.8 g/dL (32.0-37.0); MCV 93.9 FL (80.0-97.0); Mean Platelet Volume 9.4 FL (9.5-12.2); Monocytes # (A) 1.01 X 10*3/uL (0.20-1.00); Monocytes % (A) 8.8 %; NRBC Per 100 WBC 0 X 10*3/uL (0.00-0.01); Neutrophils # (A) 7.96 X 10*3/uL (1.80-7.70); Neutrophils % (A) 69.5 %; Platelet Count 197 X 10*3/uL (140-440); RBC 5.06 X 10*6/uL (4.40-5.60); WBC 11.47 X 10*3/uL (4.50-10.00)
--- NOTE | 2024-06-04 09:09 | P.DS ---
Providers Date of admission: 06/02/24 07:28 Expected date of discharge: 06/04/24 Attending physician: Faviola Knowles Consults: 06/02/24 07:28 Consult Physician Routine Consulting Provider: Tonia Chance Consult Reason/Comments: Altered mental status Do you want consulting provider notified?: Yes Consult Physician Routine Consulting Provider: Neeraj Osei Consult Reason/Comments: Altered mental status Do you want consulting provider notified?: Yes Primary care physician: Stated None Hospital Course: Discharge diagnosis 1. Altered mental status changes 2. EtOH intoxication alcohol level 93 3. History of diabetes mellitus Home medications currently on hold sliding scale added 4. History of essential hypertension Hospital course Saman Uriostegui is a 53-year-old male patient who was brought to the ER by ambulance for altered mental status. According to records patient was found sleeping in his vehicle roadside the police had responded and called an ambulance to have him evaluated at this time patient is sleeping in bed unable to answer questions. According to nursing staff patient remained altered and confused last night requiring Geodon. Per nursing staff sister was contacted by phone reports only history of diabetes and hypertension. Head CT was completed showing no acute hemorrhage hydrocephalus or mass effect. Patient serum alcohol level of 93. Drug screen positive for tricyclic antidepressant. Other lab work unremarkable. Vital signs temp 97.3, heart rate 62, respiratory rate 18, blood pressure 133/83 with a pulse ox of 98% on 2 L at this time patient will be admitted patient started on alcohol withdrawal protocol per ER. Neurology and psychiatry services have been consulted. On 06/03/2024 patient was seen and examined on the medical floor he is alert and oriented x 3 in no apparent distress, patient is more calm and oriented today there is no fever or chills no headache or dizziness no chest pain no shortness of breath no cough no nausea or vomiting no abdominal pain no diarrhea and no urinary symptoms, patient had EEG today, results are still pending awaiting results and further recommendation from neurology and psychiatry possible discharge to home tomorrow. On 06/04/2024 patient is alert and oriented x 3. Patient denies any chest pain or shortness of breath. Patient denies any nausea vomiting or diarrhea. Patient denies any urinary burning or frequency. Patient would like to be DC'd home. Patient denies that he was trying to harm himself reports that it was likely from drinking and taking his pain pills for his back. Advised the importance to avoid alcohol and misuse of medication. Patient to follow-up with PCP for further management Patient Condition at Discharge: Stable Plan - Discharge Summary Discharge Rx Participant: No New Discharge Prescriptions: Continue Pioglitazone [Actos] 15 mg PO DAILY Dapagliflozin Propanediol [Farxiga] 10 mg PO DAILY Atorvastatin [Lipitor] 20 mg PO DAILY Amitriptyline HCl [Elavil] 50 mg PO HS Fexofenadine HCl [Jacqui Allergy] 180 mg PO DAILY Ibuprofen [Motrin] 800 mg PO BID-W/MEALS PRN PRN Reason: Pain Dulaglutide [Trulicity] 1.5 mg SQ Q7D Ammonium Lactate Lotion [Lac-Hydrin 12% Lotion] 1 applic TOPICAL HS Cholecalciferol [Vitamin D3 (125 Mcg = 5000 Iu)] 125 mcg PO DAILY Latanoprost [Latanoprost 0.005%] 1 drop LEFT EYE HS Discharge Medication List Amitriptyline HCl [Elavil] 50 mg PO HS 06/02/24 [History] Ammonium Lactate Lotion [Lac-Hydrin 12% Lotion] 1 applic TOPICAL HS 06/02/24 [History] Atorvastatin [Lipitor] 20 mg PO DAILY 06/02/24 [History] Cholecalciferol [Vitamin D3 (125 Mcg = 5000 Iu)] 125 mcg PO DAILY 06/02/24 [History] Dapagliflozin Propanediol [Farxiga] 10 mg PO DAILY 06/02/24 [History] Dulaglutide [Trulicity] 1.5 mg SQ Q7D 06/02/24 [History] Fexofenadine HCl [Jacqui Allergy] 180 mg PO DAILY 06/02/24 [History] Ibuprofen [Motrin] 800 mg PO BID-W/MEALS PRN 06/02/24 [History] Latanoprost [Latanoprost 0.005%] 1 drop LEFT EYE HS 06/02/24 [History] Pioglitazone [Actos] 15 mg PO DAILY 06/02/24 [History] Follow up Appointment(s)/Referral(s): None,Stated [Primary Care Provider] - 1-2 days Faviola Knowles MD [STAFF PHYSICIAN] - 1 Week Activity/Diet/Wound Care/Special Instructions: activity as tolerated Diet heart healthy Discharge Disposition: HOME SELF-CARE
[2024-06-04 09:34] LABS: ALT 21 U/L (10-49); AST 23 U/L (14-35); Albumin 4.1 g/dL (3.8-4.9); Albumin/Globulin Ratio 1.46 Ratio (1.60-3.17); Alkaline Phosphatase 94 U/L (41-126); BUN/Creat Ratio 14.67 Ratio (12.00-20.00); Blood Urea Nitrogen 17.6 mg/dL (9.0-27.0); Calcium 9.2 mg/dL (8.7-10.3); Carbon Dioxide 26.5 mmol/L (21.6-31.8); Chloride 98 mmol/L (96-109); Globulin 2.8 g/dL (1.6-3.3); Glucose 136 mg/dL (70-110); Potassium 3.9 mmol/L (3.5-5.5); Sodium 135 mmol/L (135-145); Total Bilirubin 0.3 mg/dL (0.3-1.2); Total Protein 6.9 g/dL (6.2-8.2)
--- NOTE | 2024-06-04 09:50 | US ---
EXAMINATION TYPE: US carotid duplex BILAT DATE OF EXAM: 06/04/2024 COMPARISON: NONE CLINICAL INDICATION: Male, 53 years old with history of Syncope; altered mental status TECHNIQUE: Carotid duplex ultrasound examination. Indirect Doppler criteria was utilized. FINDINGS: EXAM MEASUREMENTS: RIGHT: Peak Systolic Velocity (PSV) cm/sec ----- Right CCA: 105 ----- Right ICA: 122 ----- Right ECA: 119 ICA/CCA ratio: 1.2 RIGHT: End Diastole cm/sec ----- Right CCA: 11.3 ----- Right ICA: 17.2 ----- Right ECA: 10.5 LEFT: Peak Systolic Velocity (PSV) cm/sec ----- Left CCA: 102 ----- Left ICA: 97.8 ----- Left ECA: 133 ICA/CCA ratio: 1.0 LEFT: End Diastole cm/sec ----- Left CCA: 22.8 ----- Left ICA: 19.4 ----- Left ECA: 12.0 VERTEBRALS (direction of flow): Right Vertebral: Antegrade Left Vertebral: Antegrade Rhythm: Normal RN IMCU NOTES: no significant velocity elevations, plaque, or stenosis seen IMPRESSION: 1. Mild atheromatous plaquing without significant velocities. Mild elevation of the right internal ca rotid at the suggest less than 50% narrowing. 2. Mild plaquing noted at the left external carotid artery. Criteria for Assigning % of Stenosis / Diameter reduction (Estimation based on the indirect measurements of the internal carotid artery velocities (ICA PSV). 1. Normal (no stenosis)=ICA PSV < 125 cm/s: ratio < 2.0: ICA EDV<40 cm/s. 2. Less than 50% stenosis=ICA PSV < 125 cm/s: ratio < 2.0: ICA EDV<40 cm/s. 3. 50 to 69% stenosis=ICA PSV of 125 to 230 cm/s: ration 2.0 ? 4.0: ICA EDV 40-100 cm/s. 4. Greater than 70% stenosis to near occlusion= ICA PSV > 230 cm/s: ratio > 4.0: ICA EDV > 100 cm/s. 5. Near occlusion= ICA PSV velocities may be low or undetectable: variable ratio and ICA EDV. 6. Total occlusion=unable to detect flow. [facility], , 06/04/2024 9:47 AM
== END 2024-06-04 10:57 | disposition home or self-care (01) ==
LOC: EC 23:39 → 6NMEDSUR 06-02 07:28 → 5NMEDONC 06-03 00:14
PROVIDERS: ADMIT Internal Medicine; ATTEND Internal Medicine
DX: R41.82 Altered mental status, unspecified (principal); I10 Essential (primary) hypertension; E11.9 Type 2 diabetes mellitus without complications; Z79.84 Long term (current) use of oral hypoglycemic drugs; Z79.899 Other long term (current) drug therapy; Y90.4 Blood alcohol level of 80-99 mg/100 ml; Z79.85 Long-term (current) use of injectable non-insulin antidiabetic drugs; F94.0 Selective mutism; G25.3 Myoclonus; G93.40 Encephalopathy, unspecified; M62.830 Muscle spasm of back; Z89.022 Acquired absence of left finger(s)
CPT/HCPCS: 36415; 70450; 80053; 80306; 80320; 81001; 82140; 82607; 82746; 83036; 85025; 86780; 93880; 95816; 96361; 96372; 96374; 99285